=== PATIENT | male | born 1985 | race Caucasian/White ===

== ENCOUNTER 2025-01-19 11:32 | Emergency (ER) | payer OTHER, SELFPAY ==
[2025-01-19 11:38] VITALS: BP 157/100
[2025-01-19 11:59] LABS: Hematocrit 47.6 % (39.0-52.0); Hemoglobin 16.0 g/dL (13.0-18.0); Mean Corp Hgb Conc. 33.6 g/dL (33.0-37.0); Mean Corpuscular Volume 88.0 fL (80.0-94.0); Nucleated Red Blood Cells % 0 % (-); Platelet Count 315 10^3/uL (130-400); Red Cell Dist. Width 12.5 % (11.5-14.5)
--- NOTE | 2025-01-19 12:07 | ED.GENMED ---
History of Present Illness
General
Chief Complaint: Chest Pain
Time Seen by Provider: 01/19/25 12:07
History of Present Illness
History of Present Illness:
FOCUSED PAST MEDICAL HISTORY
- Anxiety
REVIEW OF OLD RECORDS
- The patient was seen in the Emergency Department September 2019 also with chest pain and had normal troponin then
Note:
CHIEF COMPLAINT(S)
Panic attacks and chest pain.
HISTORY OF PRESENT ILLNESS
The patient is a 39-year-old male presenting with ongoing chest discomfort that has been persistent over the past 10 days. The patient describes the sensation as a constant tightness that diminishes with relaxation. He mentions an anxiety component
as a potential factor exacerbating the symptoms. He denies experiencing a squeezing pressure. Recent diagnostic evaluations, including an electrocardiogram and cardiac-specific blood tests, returned normal. The patient reports a previous history of
heart issues, particularly noting premature ventricular contractions (PVCs), but denies having any coronary artery disease or stents. On Sunday night, the patient contemplated visiting the emergency department due to heightened anxiety but did not
experience significant shortness of breath, diaphoresis, or acute distress at that time.
PAST MEDICAL AND SURIGICAL HISTORY
Premature ventricular contractions (PVCs).
CHRONIC MEDICAL CONDITIONS SIGNIFICANTLY AFFECTING CARE
The patient reports a prior diagnosis of PVCs related to heart rhythm issues rather than coronary artery disease.
SOCIAL DETERMINANTS AFFECTING HEALTH
The patient stopped taking Lexapro due to lifestyle changes, including stopping alcohol consumption. He recently made an appointment with a primary care provider after a telehealth provider change and insurance difficulties. He works in a stressful
IT environment, and the recent increase in workload potentially impacts his health.
REVIEW OF SYSTEMS
- Cardiovascular: Chest discomfort described as constant tightness, not associated with exertion.
- Respiratory: Denies significant shortness of breath.
- Neurological: No focal neurological deficits mentioned.
- Psychological: Reports anxiety and recent panic attacks.
PHYSICAL EXAM
General: Alert, no acute distress.
Skin: Warm, dry.
Head: Normocephalic, atraumatic.
Neck: Supple, trachea midline.
Eye, ears, nose, mouth and throat: Oral mucosa moist.
Cardiovascular: Normal peripheral perfusion, no edema.
Respiratory: Respirations are non-labored, lungs clear to auscultation.
Gastrointestinal: Abdomen nondistended.
Back: Normal range of motion, normal alignment.
Musculoskeletal: Normal range of motion, normal strength.
Neurological: Alert and oriented to person, place, time, and situation; no focal neurological deficit observed.
Psychiatric: Cooperative, appropriate mood & affect.
PROBLEM LIST
- Acute: Panic attacks, anxiety-related chest discomfort.
- Chronic: Premature ventricular contractions (PVCs).
PLAN
1. Prescribe alprazolam (Xanax) at a dose of 0.5 mg to be used as needed for anxiety or panic attacks with instructions on potential side effects and cautions about daily use and operating vehicles.
2. Recommend follow-up with a registrar assistant for further evaluation given the patients previous cardiac history of PVCs and family history of high cholesterol, providing cardiology contact information.
3. Encourage the appointment with the primary care provider to review anxiety management and further cardiovascular risk assessment.
4. Prescription to be sent to [facility] located within the [facility] in [place] for the patients convenience.
DIFFERENTIAL DIAGNOSIS
The differential diagnosis includes, in no particular order, and is not limited to:
1. Anxiety disorder
2. Panic disorder
3. Gastroesophageal reflux disease (GERD)
4. Myocardial infarction (unlikely given current findings)
5. Pulmonary embolism
6. Costochondritis
7. Atypical angina
8. Pericarditis
9. Heart failure
10. Arrhythmias, specifically premature ventricular contractions (PVCs)
Disposition:
SUMMARY OF ENCOUNTER
The patient, a 39-year-old male, was seen due to ongoing anxiety and chest discomfort experienced over the past 10 days. The chest discomfort is described as a constant tightness correlated with the patients anxiety levels, lessening with
relaxation. An ECG and cardiac-specific blood tests were conducted prior, returning normal results. Given the history of anxiety-related symptoms, the management plan in the emergency department included addressing anxiety symptoms and coordinating
follow-up care with cardiology and primary care for a comprehensive review.
ASSESSMENT
Chest pain likely related to anxiety and a history of premature ventricular contractions (PVCs).
PLAN
1. Prescribe alprazolam 0.5 mg to be used as needed for acute anxiety episodes or panic attacks.
2. Strongly recommend follow-up with a registrar assistant for further evaluation of cardiac history, and with the primary care provider to review and manage anxiety, especially considering recent lifestyle and medication changes.
MEDICATION RECONCILIATION
1. Alprazolam was prescribed at 0.5 mg as needed for anxiety.
MEDICAL DECISION MAKING
-Chronic conditions affecting care include premature ventricular contractions (PVCs) and anxiety disorder.
-Differential Diagnosis:
1. Anxiety disorder
2. Panic disorder
3. Gastroesophageal reflux disease (GERD)
4. Myocardial infarction (unlikely given current findings)
5. Pulmonary embolism
6. Costochondritis
7. Atypical angina
8. Pericarditis
9. Heart failure
10. Arrhythmias, specifically premature ventricular contractions (PVCs)
-Risk: Prescription medication was prescribed. Social determinants affecting care include recent stress in work environment and changes in medication adherence and alcohol consumption.
DIAGNOSIS
1. Anxiety disorder (F41.1)
2. Chest pain, unspecified (R07.9)
EKG
- Sinus 88, normal axis, nonspecific ST abnormality, no change from 09/15/2019
LABS
- CBC unremarkable, troponin normal
Past History
Past History
ED Past Medical History: None
ED Past Surgical History: None
Phy Exam
Physical Exam
Physical Exam:
See HPI
Scores
Heart Score for Chest Pain Patients
STEMI patient?: Not applicable
Course
Orders/Labs/Results
Orders:
Orders
01/19/25 11:33
EKG [Electrocardiogram (*1)] Urgent
Reason for Study: Chest Pain
EKG- Treatment ONCE
01/19/25 11:51
Complete Blood Count/With Diff Urgent
Comprehensive Metabolic Panel Urgent
Troponin I Urgent
Abnormal Lab Results
01/19/25
11:51
Lymphocytes % 19.8 L %
(20.5-51.1)
BUN 7 L mg/dl
(9-20)
Glucose 113 H mg/dl
(70-99)
01/19/25 11:51
01/19/25 11:51
Vital Signs
Initial and Last Documented VS:
Initial Vital Signs
Temp Pulse Resp BP Pulse Ox
36.9 C 89 16 157/100 98
01/19/25 11:38 01/19/25 11:38 01/19/25 11:38 01/19/25 11:38 01/19/25 11:38
Last Documented Vital Signs
Temp Pulse Resp BP Pulse Ox
36.9 C 89 16 157/100 98
01/19/25 11:38 01/19/25 11:38 01/19/25 11:38 01/19/25 11:38 01/19/25 12:08
*Pulse Oximetry
SaO2: 98
Oxygen Mode of Delivery: Room air
Patient hypoxic: no
*Critical Care Note
Total Time (30-74mins, 75-104mins- exclusive of procedures): Not Applicable
ED Attending Note
-
Portions of this chart may have been created with voice recognition software.� Occasional wrong word or��sound alike� substitutions may have occurred due to the inherent limitations of voice recognition software.
Discharge Plan
Departure
Patient Disposition: Home (Routine Discharge)
Date of Disposition: 01/19/25
Time of Disposition: 12:46
Patient with high blood pressure during this ER visit?: Yes
Discharge Problem:
Chest pain
Instructions: Chest Pain CBC Follow Up, BLOOD PRESSURE
Prescriptions:
New
alprazolam 0.5 mg tablet
0.5 - 1 mg PO DAILY PRN (Reason: anxiety) Qty: 8 0RF
Referrals:
Armin Fulton MD [Active, Cardiology]
Activity Restrictions/Additional Instructions:
Cardiac blood work and EKG showed no sign of heart attack. However you could also follow-up with [facility] cardiology. I am sending a prescription for a very short course of Xanax in case you are symptoms worsen.
Interventions
Interventions:
*Risk Screen - Suicide Last Done: 01/19/25 11:38
*General Assessment Last Done: 01/19/25 11:38
*Neglect/Abuse Screening Last Done: 01/19/25 11:38
*ED- Fall Risk Assessment Last Done: 01/19/25 13:13
*ED COVID-19 Vaccine History Last Done: 01/19/25 13:13
*ED Influenza Vaccine History Last Done: 01/19/25 13:13
ED- Cardiac Assessment Last Done: 01/19/25 13:23
Discharge Date and Time
Print Language: FRENCH
[2025-01-19 12:10] LABS: ALT (SGPT) 24 U/L (0-50); AST (SGOT) 24 U/L (17-59); Albumin 4.7 g/dl (3.5-5.0); Alkaline Phosphatase 59 U/L (38-126); Blood Urea Nitrogen 7 mg/dl (9-20); Calcium 9.5 mg/dl (8.4-10.2); Carbon Dioxide 27 mmol/L (22-30); Chloride 104 mmol/L (98-107); Glucose 113 mg/dl (70-99); Potassium 4.2 mmol/L (3.5-5.1); Sodium 139 mmol/L (135-145); Total Protein 7.6 g/dl (6.3-8.2); eGFR > 60.00
[2025-01-19 12:21] LABS: Troponin I < 0.012 ng/ml
[2025-01-19 13:23] VITALS: BP 129/74
== END 2025-01-19 13:25 | disposition home or self-care (01) ==
LOC: EMR 11:32
PROVIDERS: Emergency Medicine; EMERGENCY PHYSICIAN Emergency Medicine
DX: R07.89 Other chest pain (principal); F41.0 Panic disorder [episodic paroxysmal anxiety]; Z83.49 Family history of other endocrine, nutritional and metabolic diseases; Z86.79 Personal history of other diseases of the circulatory system
CPT/HCPCS: 99283; 80053; 84484; 85025; 93005

== ENCOUNTER → 2025-02-06 10:35 | Outpatient (REF) | payer OTHER, SELFPAY | LOC: RCS 10:35 | PROVIDERS: ATTENDING PHYSICIAN Internal Medicine Cardiovascular Disease; FAMILY PHYSICIAN Hospitalist | DX: R07.89 Other chest pain (principal) | CPT/HCPCS: 93017 ==

== ENCOUNTER → 2025-02-13 11:09 | Outpatient (REF) | payer OTHER, SELFPAY | LOC: HWRCS 11:09 | PROVIDERS: ATTENDING PHYSICIAN Internal Medicine Cardiovascular Disease; FAMILY PHYSICIAN Hospitalist | DX: R07.89 Other chest pain (principal) | CPT/HCPCS: 93306 ==